=== PATIENT | female | born 1955 | race Caucasian/White ===

== ENCOUNTER 2018-08-02 15:05 | Outpatient (CLI) | payer BC | END 2018-08-02 15:45 | disposition home or self-care (01) | LOC: SLEEP 15:05 | PROVIDERS: ATTEND Nurse Practitioner | DX: G47.33 Obstructive sleep apnea (adult) (pediatric) (principal); R06.83 Snoring; G47.10 Hypersomnia, unspecified ==

== ENCOUNTER → 2018-12-27 | Outpatient (CLI) | payer BC ==
[2018-12-27 15:21] VITALS: BP 146/87
--- NOTE | 2018-12-27 15:21 | Cardiology Stress Test Report ---
Stress Test Report Date of Procedure/Referring: Date of Procedure: Dec 27, 2018 PCP Chayito Choudhary MD Admitting Physician Regan Silva DO Indications: chest pain Baseline Heart Rate: 73 Baseline Blood Pressure: Blood Pressure Systolic: 146 Blood Pressure Diastolic: 87 Baseline EKG: Baseline EKG: Normal sinus rhythm Summary/Conclusion: Summary: In summary, the patient started exercising with a baseline heart rate, blood pressure and EKG mentioned above Patient was able to exercise for a total of 7:30 minutes on Tyler protocol, 9.1 METs Maximum heart rate 131 Maximum blood pressure 199/113 Stress EKG Minimal nondiagnostic changes Recovery EKG Return to baseline Conclusion: 1. Good exercise tolerance for a total of 7:30 minutes on Tyler protocol, 9.1 METs, achieving 82 percent of maximum expected heart rate 2. Minimal nondiagnostic EKG changes with exercise returned to baseline during recovery 3. No arrhythmia was noted CHAYITO CHOUDHARY MD Dec 27, 2018 15:21 POS
== END ==
LOC: CARD 10:12
PROVIDERS: ATTEND Internal Medicine Cardiovascular Disease
DX: I34.0 Nonrheumatic mitral (valve) insufficiency (principal); E78.2 Mixed hyperlipidemia; I10 Essential (primary) hypertension; Z72.0 Tobacco use
CPT/HCPCS: 93017